=== PATIENT | male | born 1990 | race African-American/Black ===

== ENCOUNTER 2020-05-30 02:25 | Emergency (ER) | payer OTHER ==
[~2020-05-30] VITALS: Ht 180.3 cm; Wt 77.1 kg
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
[2020-05-30 03:39] VITALS: BP 123/89
== END 2020-05-30 04:04 | disposition home or self-care (01) ==
LOC: ER 02:25
DX: S01.112A Laceration without foreign body of left eyelid and periocular area, initial encounter (principal); R07.89 Other chest pain; F10.920 Alcohol use, unspecified with intoxication, uncomplicated; F17.210 Nicotine dependence, cigarettes, uncomplicated; Z88.1 Allergy status to other antibiotic agents; V49.9XXA Car occupant (driver) (passenger) injured in unspecified traffic accident, initial encounter; Y93.89 Activity, other specified; Y92.488 Other paved roadways as the place of occurrence of the external cause; Y99.8 Other external cause status